=== PATIENT | female | born 1955 | race Caucasian/White ===

== ENCOUNTER 2018-12-08 16:44 | Emergency (ER) | payer SELFPAY ==
[2018-12-08 16:51] VITALS: BP 162/78; PULSE 82; TEMP 98.7; BMI 23.4
--- NOTE | 2018-12-08 18:23 | PDOC ---
History of Present Illness - General Chief Complaint: Foreign Body (FB) Stated Complaint: SPLINTER IN LT FOOT Time Seen by Provider: 12/08/18 17:04 - History of Present Illness Initial Comments: 12/08/18 18:27 CHIEF COMPLAINT: foot injury HISTORY OF PRESENT ILLNESS: 63 yo F presents to fast track with pain to L foot s /p injury. Patient reports that she accidentally stepped on a broken bottle 3 days ago and thought that she had taken the piece of glass out but she continues to have pain to the bottom of her foot. No recent travel or sick contacts. PAST MEDICAL HISTORY: Denies past medical history FAMILY HISTORY: Denies SOCIAL HISTORY: Denies tobacco, alcohol, illicit drug use. SURGICAL HISTORY: Denies ALLERGIES: No known drug allergies REVIEW OF SYSTEMS General/Constitutional: Denies fever or chills. Denies weakness, weight change. HEENT: Denies change in vision. Denies ear pain or discharge. Denies sore throat. Cardiovascular: Denies chest pain or shortness of breath. Respiratory: Denies cough, wheezing, or hemoptysis. Gastrointestinal: Denies nausea, vomiting, diarrhea or constipation. Denies rectal bleeding. Genitourinary: Denies dysuria, frequency, or change in urination. Musculoskeletal: Pain to bottom of L foot. Skin and breasts: Denies rash or easy bruising. Neurologic: Denies headache, vertigo, loss of consciousness, or loss of sensation. PHYSICAL EXAM General Appearance: Well-appearing, appropriately dressed. No apparent distress , no intoxication. HEENT: EOMI, PERRLA, normal ENT inspection, normal voice, TMs normal, pharynx normal. No conjunctival pallor. No photophobia, scleral icterus. Neck: Supple. Trachea midline. No tenderness, rigidity, carotid bruit, stridor , lymphadenopathy, or thyromegaly. Respiratory/Chest: Lungs CTAB. No shortness of breath, chest tenderness, respiratory distress, accessory muscle use. No crackles, rales, rhonchi, stridor , wheezing, dullness Cardiovascular: RRR. S1, S2. No JVD, murmur, bradycardia, tachycardia. Vascular Pulses: Dorsalis-Pedis (R): 2+, Dorsalis-Pedis (L): 2+ Gastrointestinal/Abdominal: Normal bowel sounds. Abdomen soft, non-distended. No tenderness or rebound tenderness. No organomegaly, pulsatile mass, guarding , hernia, hepatomegaly, splenomegaly. Lymphatic: No adenopathy, tenderness. Musculoskeletal/Extremities: Tenderness to plantar aspect of L foot over 3rd and 4th metatarsal. No erythema or significant swelling. Normal inspection. FROM of all extremities, normal capillary refill. Pelvis Stable. No CVA tenderness. No tenderness to extremities, pedal edema, swelling, erythema or deformity. Integumentary: Appropriate color, dry, warm. No cyanosis, erythema, jaundice or rash Neurologic: chief revenue officer II-XII intact. Fully oriented, alert. Appropriate mood/affect. Motor strength 5/5. No appreciable EOM palsy, facial droop or sensory deficit. 12/08/18 18:28 Past History - Past Medical History Allergies/Adverse Reactions: Allergies Allergy/AdvReac Type Severity Reaction Status Date / Time No Known Allergies Allergy Verified 12/08/18 16:50 Home Medications: Ambulatory Orders Cephalexin [Keflex] 500 mg PO BID #20 capsule 12/08/18 COPD: No - Suicide/Smoking/Psychosocial Hx Smoking History: Never smoked *Physical Exam - Vital Signs Last Vital Signs Temp Pulse Resp BP Pulse Ox 98.7 F 82 18 162/78 99 12/08/18 16:48 12/08/18 16:48 12/08/18 16:48 12/08/18 16:48 12/08/18 16:48 ED Treatment Course - RADIOLOGY Radiology Studies Ordered: Category Date Time Status FOOT-LEFT [RAD] Stat Radiology 12/08/18 17:04 Taken Medical Decision Making - Medical Decision Making 12/08/18 18:35 63 yo F presents to fast track with pain to L foot s/p injury. -x-ray L foot foreign body to L foot visualized will rx antibiotics, patient will need f/u with podiatry for foreign body extraction *DC/Admit/Observation/Transfer Diagnosis at time of Disposition: Foreign body in foot, left Qualifiers: Encounter type: initial encounter Qualified Code(s): S90.852A - Superficial foreign body, left foot, initial encounter - Discharge Dispostion Disposition: HOME Condition at time of disposition: Stable Decision to Admit order: No - Prescriptions Prescriptions: Cephalexin [Keflex] 500 mg PO BID #20 capsule - Referrals Referrals: Jeremiah Wiseman MD [Staff Physician] - Eyal Ortiz MD [Staff Physician] - Sean Ruelas DPM [Staff Physician] - Allegra Martines DPM [Non Staff, Medical] - Jason Day MD [Non Staff, Medical] - - Patient Instructions Printed Discharge Instructions: DI for Puncture Wound Additional Instructions: Please take medications as prescribed. As discussed, you must make an appointment with the agriculture specialist for removal of the foreign object from your foot. If you develop redness, swelling, or worsening pain, to your foot, or any fever, chills, vomiting, or any new or worsening symptoms, please return to the ER. Rekha la medicina doc recetada. Tiene que hacer raj carlotta con la especialista para sacar el objecto extranjero de lipscomb pie. Si renay sintomas empeoran, por favor regresa a la gabriella de emergencia. Print Language: PASHTO - Post Discharge Activity
== END 2018-12-08 18:50 | disposition home or self-care (01) ==
LOC: JERFT 16:44
DX: S90.852A Superficial foreign body, left foot, initial encounter (principal); W45.8XXA Other foreign body or object entering through skin, initial encounter; W25.XXXA Contact with sharp glass, initial encounter; Y93.89 Activity, other specified; Y92.89 Other specified places as the place of occurrence of the external cause; Y99.8 Other external cause status
CPT/HCPCS: 73630-TC-LT; 99281-25